=== PATIENT | male | born 1975 | race Hispanic/Latino ===

== ENCOUNTER 2023-08-25 07:10 | Day surgery (SDC) | payer OTHER ==
[~2023-08-25] VITALS: Ht 162.6 cm; Wt 90.7 kg
[2023-08-25] VITALS (14 sets, daily range): BP systolic 95–149; BP diastolic 59–97; PULSE 75–96; RESP 15–18
[~2023-08-25 07:10] MED LIST: 0.9%NACL 1000ML 1,000 ML IV ONE; LOSA1TAB37 PO
[2023-08-25] MEDS ORDERED: PROPOFOL 10 MG/ML 20ML VIAL IV ONE (12:09)
== END 2023-08-25 14:00 | disposition home or self-care (01) ==
LOC: DAH 07:10 → ENDO 07:10
PROVIDERS: ATTEND Internal Medicine Gastroenterology
DX: Z12.11 Encounter for screening for malignant neoplasm of colon (principal); K29.70 Gastritis, unspecified, without bleeding; B96.81 Helicobacter pylori [H. pylori] as the cause of diseases classified elsewhere; K44.9 Diaphragmatic hernia without obstruction or gangrene; R10.13 Epigastric pain; R14.2 Eructation; I10 Essential (primary) hypertension; F17.210 Nicotine dependence, cigarettes, uncomplicated; Z72.89 Other problems related to lifestyle; Z80.0 Family history of malignant neoplasm of digestive organs; Z79.1 Long term (current) use of non-steroidal anti-inflammatories (NSAID); Z82.49 Family history of ischemic heart disease and other diseases of the circulatory system
CPT/HCPCS: 45378; 43239; J7030; J2704; A4620; A4215 ×2; A4223; A4222; A4221; A4663; A4606; G0121; J3490